=== PATIENT | female | born 1975 | race Caucasian/White ===

== ENCOUNTER 2016-11-26 10:26 | Emergency (ER) | payer OTHER ==
--- NOTE | 2016-11-26 12:17 | UC ---
Ear Complaint HPI - HPI Summary HPI Summary: Brief, severe stabbing pains behind L ear and into scalp for a few seconds, at least 2-3 times per minute starting a couple days ago. Increasing in frequency. No URI sx, allergies, prior ear surgery or problems, fever, rash, or swelling. No hx of same or hearing changes. - History of Current Complaint Chief Complaint: UCGeneralIllness Stated Complaint: EAR PAIN Time Seen by Provider: 11/26/16 11:55 Hx Obtained From: Patient Hx Last Menstrual Period: ablasion ?: No Onset/Duration: Sudden Onset Severity Initially: Mild Severity Currently: Moderate Aggravating Factors: Nothing Alleviating Factors: Nothing Associated Signs/Symptoms: Negative: Hearing Loss, Trauma to Ear, Swelling @, URI Symptoms - Allergies/Home Medications Allergies/Adverse Reactions: Allergies Allergy/AdvReac Type Severity Reaction Status Date / Time No Known Allergies Allergy Verified 11/26/16 10:28 PMH/Surg Hx/FS Hx/Imm Hx Previously Healthy: Yes - did have varicella as a child - Surgical History Surgical History: None Surgery Procedure, Year, and Place: hernia ,ablasion ,hyster,brst implants - Family History Known Family History: Positive: None - Social History Lives: With Family Alcohol Use: Occasionally Substance Use Type: None Smoking Status (MU): Heavy Every Day Tobacco Smoker Review of Systems Constitutional: Negative Skin: Negative Eyes: Negative ENT: Negative Respiratory: Negative Cardiovascular: Negative Gastrointestinal: Negative Genitourinary: Negative Motor: Negative Neurovascular: Negative Musculoskeletal: Negative Neurological: Headache Psychological: Negative All Other Systems Reviewed And Are Negative: Yes Physical Exam Triage Information Reviewed: Yes Appearance: Well-Nourished, Pain Distress - with shooting pains, grimace Vital Signs: Initial Vital Signs Temp 98.4 F 11/26/16 10:30 Pulse 78 11/26/16 10:30 Resp 16 11/26/16 10:30 Pulse Ox 100 11/26/16 10:30 Vital Signs Reviewed: Yes Eye Exam: Normal Eyes: Positive: Conjunctiva Clear ENT Exam: Normal ENT: Positive: Normal ENT inspection, Hearing grossly normal, Pharynx normal, TMs normal. Negative: Nasal congestion, Nasal drainage, TM bulging, TM dull, TM red Dental Exam: Normal Neck: Positive: Nontender, No Lymphadenopathy - no postauricular or occipital nodes Respiratory Exam: Normal Respiratory: Positive: Chest non-tender, Lungs clear, Normal breath sounds, No respiratory distress, No accessory muscle use Cardiovascular Exam: Normal Cardiovascular: Positive: RRR, No Murmur Musculoskeletal Exam: Normal Neurological Exam: Normal Neurological: Positive: Alert Psychological Exam: Normal Skin Exam: Normal Ear Complaint Course/Dx - Differential Dx/Diagnosis Provider Diagnoses: L scalp neuropathy. possible shingles. elevated blood pressure due to pain Discharge - Discharge Plan Condition: Stable Disposition: HOME Prescriptions: Gabapentin CAP(*) [Neurontin 300 CAP(*)] 300 mg PO TID #90 cap Ibuprofen TAB* [Advil TAB*] 600 mg PO Q8HR #20 tab ValACYclovir (*) [Valtrex 1 GM(*)] 1 gm PO TID #21 tab Patient Education Materials: Cervical Radiculopathy (ED), Shingles (ED) Referrals: Harpreet Raymundo DO [Doctor of Osteopathy] - 2 Weeks Additional Instructions: I believe your pain is from an inflamed nerve. I am treating you for shingles because this is a common cause of nerve pain, though you do not have the characteristic rash at this time. Unless you have total resolution of your symptoms, you should see your primary care provider for follow-up in the next 1- 2 weeks.
== END 2016-11-26 12:27 | disposition home or self-care (01) ==
LOC: UCEAST 10:26
DX: G62.9 Polyneuropathy, unspecified (principal); Z72.0 Tobacco use
CPT/HCPCS: 99212; G0463